=== PATIENT | female | born 1930 | race Asian ===

== ENCOUNTER 2019-06-06 00:13 | Inpatient (IN) | payer MEDICARE, OTHER ==
[~2019-06-06] VITALS: Ht 160 cm; Wt 55.8 kg
[2019-06-06 01:00] VITALS: BP 127/67
[2019-06-06] MEDS ORDERED: GEMF600T5 PO (01:19)
[2019-06-06] MEDS ORDERED: VITA1TAB37 PO (01:19)
[2019-06-06] MEDS ORDERED: AMLO10TA7 PO (01:19)
[2019-06-06] MEDS ORDERED: VIT1CAPS44 PO (01:19)
[2019-06-06] MEDS ORDERED: TRIA80CR12 TP (01:19)
[2019-06-06] MEDS ORDERED: DIPH25CA83 PO (01:19)
[2019-06-06] MEDS ORDERED: LOSA50TA39 PO (01:19)
--- NOTE | 2019-06-06 01:30 | NUR ---
ADMISSION NOTES: PT DIRECT ADMIT FROM [facility], CAME TO THE UNIT AT 0030 VIA STRETCHER ACCOMPANIED BY EMT/AMBULANCE. PT TRANSFERRED TO ROOM, BED 313-1. PT IS A/O X3 ON RA RESPIRATIONS EVEN AND UNLABORED. DENIES ANY PAIN. BUT STILL C/O ITCHING. PT NOTED TO HAVE GENERALIZED RASHES CLAIMED IT ALL STARTED WHEN SHE BEGAN TAKING ALLOPURINOL. MET WITH PT'S SON AT BED SIDE. PT HAS LEFT FA IVC ACCESS PATENT AND FLUSHING WELL, ON HL. PT USES [facility] UPON AMBULATION. LIVES WITH FAMILY AT HOME. ORIENTED TO UNIT POLICY AND HOURLY ROUNDING, USE OF CALL LIGHT SYSTEM. INVENTORY OF BELONGINGS COMPLETED BY MEHREEN POSADAS. PT'S SON DECIDED TO BRING HOME PT'S PURSE AND WALLET, INCLUDING HOME MEDICATIONS. ALL ADMISSION QUESTIONS ANSWERED BY PATIENT AND HER SON. SKIN ASSESSMENT PERFORMED, PLEASE SEE SKIN ASSESSMENT LOG FOR DETAILS. PT CLAIMED HE'S BEEN EATING AT HOME PRIOR TO COMING TO [place], ONLY C/O THROAT PAIN. VS TAKEN AND RECORDED. SAFETY PRECAUTIONS FOR FALL INITIATED, CALL LIGHT IN REACH, WILL CONTINUE MONITORING PT.
--- NOTE | 2019-06-06 01:35 | NUR ---
RN NOTES: ACCORDING TO PT, LAST TAKEN BENADRYL IS 0100AM
--- NOTE | 2019-06-06 01:56 | NUR ---
RN NOTES: NOTIFIED DR BARRERA REGARDING ADMITTING ORDERS. AWAITING FOR RESPONSE.
--- NOTE | 2019-06-06 02:42 | NUR ---
RN NOTES: RECEIVED T/O FROM , TO GIVE BENADRYL 50 MG IVP Q6HRS PRN FOR ITCHING, BENADRYL ITCH STOPPING CREAM Q8HRS PRN FOR ITCHING. ORDERS READ BACK VERIFIED AND CARRIED OUT. PER MD, HE WILL PUT THE REST OF THE ORDERS LATER ON.
[2019-06-06 02:51] VITALS: BP 127/67
[2019-06-06] MEDS ORDERED: diphenhydrAMINE HCL/ZINC ACET CREAM 28.3 GM TUBE TP PRN (03:00)
[2019-06-06] MEDS ORDERED: diphenhydrAMINE HCL 50 MG/ML VIAL IV PRN (03:00)
--- NOTE | 2019-06-06 04:00 | NUR ---
RN NOTES: SEEN PT SLEEPING, APPEARS CALM AND COMFORTABLE.
--- NOTE | 2019-06-06 06:21 | NUR ---
RN NOTES: FOLLOWED UP WITH HOSPITALIST [facility] REGARDING ADMITTING ORDERS, AWAITING FOR RESPONSE.
--- NOTE | 2019-06-06 06:55 | NUR ---
RN NOTES: PER DR'S ORDER, TO PUT ON TELEMETRY. TELE MONITORING PLACED
[2019-06-06] MEDS ORDERED: Z GUARD REMEDY 2 OZ OINT TP PRN (07:00)
[2019-06-06] MEDS ORDERED: TRIAMCINOLONE ACETONIDE 0.1% CR 15 GM TUBE TP PRN (07:00)
[2019-06-06] MEDS ORDERED: ONDANSETRON HCL/PF 4 MG/2 ML VIAL IVP PRN (07:00)
[2019-06-06] MEDS ORDERED: ACETAMINOPHEN 325 MG TABLET PO PRN (07:00)
--- NOTE | 2019-06-06 07:09 | NUR ---
END OF SHIFT SUMMARY: PT REMAINS A/O X4, ON RA, RESPIRATIONS EVEN AND UNLABORED. PLACED ON TELE MONITORING ON SINUS RHYTHM HR 87. IV ACCESS REMAINS PATENT AND FLUSHING WELL, ON HL, NO S/S OF IV INFILTRATION NOTED. VS REMAINS STABLE, NEEDS ATTENDED. SAFETY PRECAUTIONS FOR FALL REMAINS ENGAGED, CALL LIGHT IN REACH, WILL ENDORSE TO DAY RN FOR CONTINUITY OF CARE.
--- NOTE | 2019-06-06 07:15 | NUR ---
PRODUCT LISTER OPENING NOTES RECEIVED PT IN BED, AWAKE, A/O X4. PT TOLERATING RA WITH NO ACUTE RESPIRATORY DISTRESS NOTED. PT DENIES ANY PAIN OR DISCOMFORT. PT DENIES ANY CONCERNS OR QUESTIONS AT THIS TIME. PT ON TELEMONITORING WITH SR HR 90. PIV TO LFA G20, FLUSHED WITH NS, INTACT AND OPERATIONAL. PT KEPT COMFORTABLE IN BED. CALL LIGHT KEPT WITHIN REACH. WILL CONTINUE PLAN OF CARE.
[2019-06-06 08:00] VITALS: BP 113/62
[2019-06-06] MEDS: FAMOTIDINE/PF INJ 20 MG/2 ML VIAL IV SCH ×2 (08:07→20:13)
[2019-06-06 08:22] LABS: BASOPHILS # (AUTO) 0.1 /CMM (0.0-0.2); BASOPHILS % (AUTO) 0.9 % (0.0-2.0); HEMATOCRIT 39 % (33-45); HEMOGLOBIN 12.5 g/dL (11.5-14.8); LYMPHOCYTES % (AUTO) 25.6 % (20.0-44.0); MEAN CORPUSCULAR HGB CONC 32 g/dl (31.0-36.0); MEAN CORPUSCULAR VOLUME 91 fL (82-100); MONOCYTES # (AUTO) 0.9 /CMM (0.1-1.30); MONOCYTES % (AUTO) 7.6 % (2.0-12.0); NEUTROPHILS # (AUTO) 6.9 /CMM (1.8-8.9); NEUTROPHILS % (AUTO) 58.9 % (43.0-81.0); PLATELET COUNT (AUTO) 351 /CMM (150-450); RED BLOOD CELL COUNT(AUTO) 4.27 MIL/uL (4.0-5.2); WHITE BLOOD COUNT (AUTO) 11.7 K/uL (4.3-11.0)
[2019-06-06 08:41] LABS: CALCIUM, SERUM 8.1 mg/dL (8.5-10.1); CARBON DIOXIDE 21 mmol/L (21-32); CHLORIDE 110 mmol/L (98-107); CREATININE 1.2 mg/dL (0.6-1.3); GLUCOSE 92 mg/dL (74-106); POTASSIUM 3.8 mmol/L (3.5-5.1); SODIUM SERUM 141 mmol/L (136-145); UREA NITROGEN, BLOOD 15 mg/dL (7-18)
[2019-06-06 08:46] LABS: CHOLESTEROL 95 mg/dL (<200); HDL CHOLESTEROL 27 mg/dL (40-60); LDL 40 mg/dL (0-99); THYROID STIMULATING HORMONE 0.408 uIU/mL (0.358-3.74); TRIGLYCERIDES 115 mg/dL (30-150); URIC ACID 4.3 mg/dL (2.6-7.2)
[2019-06-06 08:53] LABS: C-REACTIVE PROTEIN 2.4 mg/dL (0.0-0.9)
[2019-06-06 09:06] LABS: ALANINE AMINOTRANSFERASE 116 U/L (12-78); ALBUMIN 2.3 g/dL (3.4-5.0); ALKALINE PHOSPHATASE 71 U/L (46-116); ASPARTATE AMINOTRANSFERASE 122 U/L (15-37); B-TYPE NATRIURETIC PEPTIDE 258 PG/ML (0-125); BILIRUBIN,TOTAL 0.2 mg/dL (0.2-1.0); MAGNESIUM 1.8 mg/dL (1.8-2.4); PHOSPHORUS 2.3 mg/dL (2.5-4.9); TOTAL PROTEIN, SERUM 5.7 g/dL (6.4-8.2)
--- NOTE | 2019-06-06 09:58 | NUR ---
RN NOTES CALLED PHARMACY AND SPOKE TO BETHANY REGARDING LOKESH MEDICATION. MEDICINE NOT PRESENT ON THE UNIT UP TO THIS MOMENT. AWAITING FOR DELIVERY. PT MADE AWARE WELL.
[2019-06-06] MEDS: FEXOFENADINE HCL (60 MG) 60 MG TABLET PO SCH ×2 (10:53→20:14)
[2019-06-06] MEDS ORDERED: Sodium Phosphate 15 MMOL in IV D5W 250 ML IV ONE (12:00)
[2019-06-06] MEDS ORDERED: methylPREDNISolone SOD SUCC 125 MG/2ML VIAL IV ONE (12:30)
--- NOTE | 2019-06-06 12:45 | NUR ---
MS RN NOTES PT WAS PLACED ON NPO. US ABD ONGOING.
[2019-06-06 16:00] VITALS: BP_SYST 101; BP_SYST 99; BP_DIAS 54; BP_DIAS 58
--- NOTE | 2019-06-06 18:34 | NUR ---
MS RN CLOSING NOTES PT REMAINS IN BED, AWAKE, A/O X4. PT TOLERATING RA WITH NO ACUTE RESPIRATORY DISTRESS NOTED. PT DENIES ANY PAIN OR DISCOMFORT. PIV TO RFA G20, FLUSHED WITH NS, INTACT AND OPERATIONAL. ALL NEEDS AND CARE ATTENDED. PT KEPT COMFORTABLE IN BED. CALL LIGHT KEPT WITHIN REACH. WILL ENDORSE TO INCOMING NIGHT NURSE FOR LA.
--- NOTE | 2019-06-06 19:10 | NUR ---
RN medsurg opening notes Received Pt from morning nurse. Pt is sitting in the bed eating dinner. Pt is alert and orientedX4. Respiration is normal. No SOB. No S/S of distress noted. IV sites at RFA # 20 is clean, intact, patent and SL. Safety precautions is maintained. Bed at low position, brakes locked, side rails up X3 and call light is within reach. Will continue to monitor.
[2019-06-06 20:00] VITALS: BP 111/65
[2019-06-06 20:55] VITALS: BP 111/65
--- NOTE | 2019-06-06 23:15 | NUR ---
BRENDA medsur notes Pt refused weekly skin assessment and pictures. Pt stated " They took it already." Made aware risks and benefits. Pt keep refusing. Will continue to monitor.
--- NOTE | 2019-06-07 06:52 | NUR ---
RN medsurg closing notes Pt is resting in bed comfortably. Pt is alert and orientedX4. Respiration is normal in room air. No SOB. No S/S of distress noted. IV sites at RFA # 20 is clean, intact, patent and SL. VS is stable. Afebrile. Routine meds were given as ordered. Kept Pt clean, dry and comfortable. Safety precautions is maintained. Bed at low position, brakes locked, side rails upX3 and call light is within reach. Will endorse to morning nurse for LA.
--- NOTE | 2019-06-07 07:48 | NUR ---
MS RN NOTES PATIENT RECEIVED IN BED RESTING, LAYING COMFORTABLY. ALERT AND ORIENTED X 4, SPEAKS MAINLY TAGALOG. PATIENT ON ROOM AIR, NO SIGNS OF RESPIRATORY DISTRESS. PATIENT SKIN IS DRY WITH GENERALIZED RASH. PATIENT ON CARDIAC DIET. IV ACCESS INTACT AND PATENT. PATIENT CANE BY BEDSIDE, ENDORSED SAFETY PRECAUTION WITH BED IN THE LOWEST POSITION, BED LOCKED, BED ALARM ON, BILATERAL SIDE RAILS UP, AND CALL LIGHT IN EASY REACH. WILL CONTINUE TO MONITOR PATIENT.
[2019-06-07 08:00] VITALS: BP 108/62
[2019-06-07 08:17] LABS: BASOPHILS # (AUTO) 0.1 /CMM (0.0-0.2); BASOPHILS % (AUTO) 0.6 % (0.0-2.0); EOSINOPHILS % (AUTO) 1.3 % (0.0-6.0); HEMATOCRIT 37 % (33-45); HEMOGLOBIN 11.9 g/dL (11.5-14.8); LYMPHOCYTES # (AUTO) 5.6 /CMM (0.8-4.8); MEAN CORPUSCULAR HGB CONC 33 g/dl (31.0-36.0); MEAN CORPUSCULAR VOLUME 89 fL (82-100); MONOCYTES # (AUTO) 0.9 /CMM (0.1-1.30); MONOCYTES % (AUTO) 4.4 % (2.0-12.0); NEUTROPHILS # (AUTO) 13.2 /CMM (1.8-8.9); NEUTROPHILS % (AUTO) 65.7 % (43.0-81.0); PLATELET COUNT (AUTO) 323 /CMM (150-450); RED BLOOD CELL COUNT(AUTO) 4.11 MIL/uL (4.0-5.2); WHITE BLOOD COUNT (AUTO) 20.1 K/uL (4.3-11.0)
[2019-06-07 08:32] LABS: ALBUMIN 2.3 g/dL (3.4-5.0); BILIRUBIN,DIRECT 0.1 mg/dL (0.0-0.2); BILIRUBIN,TOTAL 0.2 mg/dL (0.2-1.0); CALCIUM, SERUM 8.2 mg/dL (8.5-10.1); CREATININE 1.1 mg/dL (0.6-1.3); PHOSPHORUS 3.2 mg/dL (2.5-4.9); POTASSIUM 3.6 mmol/L (3.5-5.1); TOTAL PROTEIN, SERUM 5.8 g/dL (6.4-8.2)
[2019-06-07] MEDS: FAMOTIDINE/PF INJ 20 MG/2 ML VIAL IV SCH (08:59)
[2019-06-07] MEDS: methylPREDNISolone SOD SUCC 40 MG/ML VIAL IV SCH ×3 (08:59→16:52)
[2019-06-07] MEDS: FEXOFENADINE HCL (60 MG) 60 MG TABLET PO SCH (08:59)
--- NOTE | 2019-06-07 10:22 | NUR ---
WOUND CARE CONSULT: PT PRESENTS INDEPENDENT WITH BED MOBILITY AND CONTINENT WITH RED BLOTCHY AREAS OVER ENTIRE BODY, PRESENT ON ADMISSION. DEFER TO MD. RN TO DISCUSS WITH MD. PT ON STEROIDS. WILL SEE PRN. CURRENT DORIE SCORE IS 17.
[2019-06-07] MEDS ORDERED: METH4TAB3 PO (12:14)
--- NOTE | 2019-06-07 15:21 | NUR ---
MS RN NOTES PATIENT SEEN AND EXAMINED BY CARMELO RAMIRES NP WITH ORDER FOR DISCHARGE TO HOME. PATIENT MADE AWARE OFFERED TO DO WOUND PHOTO DOCUMENTATION BUT PATIENT REFUSED. EXPLAINED TO PATIENT THE IMPORTANCE OF INTEGUMENTARY PHOTOS OF PATIENT'S GENERALIZED RASH. PATIENT STRONGLY REFUSED TO TAKE PHOTOS AGAIN, EDUCATED THE PATIENT THE BENEFITS ANDS NEEDS FOR THE PHOTOS. PATIENT DENIED AND STATED TO USE THE PHOTOS THAT WERE TAKEN PRIOR. WILL CONTINUE TO MONITOR PATIENT.
[2019-06-07 16:00] VITALS: BP 125/67
--- NOTE | 2019-06-07 16:09 | NUR ---
MS RN NOTES PATIENT HAS NEW MEDICATION, PRESCRIPTION ORDER FOR DISCHARGE. CALLED PATIENT PREFERRED PHARMACY, AND SPOKE TO THE PHARMACIST TO VERIFIED AND CONFIRMED THAT THEY HAVE RECEIVED THE ORDER AND WILL BE READY FOR PICKUP. WILL INFORM PATIENT AND NOTIFY THE VERIFICATION OF NEW MEDICATION ORDER.
--- NOTE | 2019-06-07 16:22 | NUR ---
MS RN NOTES CALLED PATIENTS GRAND-DAUGHTER, OMAYRA, INFORMED PATIENT IS CLEARED FOR DISCHARGE. VERBALIZED UNDERSTANDING, STATED SHE WILL COME AND PICK PATIENT UP.
--- NOTE | 2019-06-07 17:45 | NUR ---
MS RN NOTES PATIENT WAS DISCHARGED AT BEDSIDE ACCOMPANIED BY GRAND-DAUGHTER. REMOVED IV ACCESS SITE AND REMOVED ID BAND. DISCHARGE TEACHING AND EDUCATION PROVIDED, PATIENT VERBALIZED UNDERSTANDING. 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 VERBALIZED PATIENT WILL FOLLOW UP WITH ENT AND MANAGER NEW PRODUCT. ALL BELONGINGS COMPLETE ON DISCHARGE. NO ACUTE DISTRESS OR NO COMPLAINS OF PAIN OR DISCOMFORT. NO NEW SKIN BREAKDOWNS.PATIENT LEFT UNIT IN A WHEELCHAIR, ACCOMPANIED BY NURSING STAFF TO PARKING LOT. PATIENT LEFT VIA PRIVATE CAR WITH GRAND-DAUGHTER. MD AWARE OF DISCHARGE.
== END 2019-06-07 17:45 | disposition home or self-care (01) | DRG 606 ==
LOC: MED 00:13 → TELE 06:55 → MED 08:10
PROVIDERS: ADMIT Nurse Practitioner Acute Care; ATTEND Nurse Practitioner Acute Care
DX: L27.0 Generalized skin eruption due to drugs and medicaments taken internally (principal); N17.0 Acute kidney failure with tubular necrosis; J98.11 Atelectasis; M10.9 Gout, unspecified; M81.0 Age-related osteoporosis without current pathological fracture; I10 Essential (primary) hypertension; E83.39 Other disorders of phosphorus metabolism; R74.0 Nonspecific elevation of levels of transaminase and lactic acid dehydrogenase [LDH]; Z88.9 Allergy status to unspecified drugs, medicaments and biological substances; T50.4X5A Adverse effect of drugs affecting uric acid metabolism, initial encounter; Y92.89 Other specified places as the place of occurrence of the external cause; D72.1 Eosinophilia; E78.5 Hyperlipidemia, unspecified
CPT/HCPCS: 36415; 71045-TC; 76700-TC; 80048-TC; 80053-TC; 80061-TC; 80076-TC; 83735-TC; 83880; 84100-TC; 84443-TC; 84484-TC; 84550-TC; 85025-TC; 85652-TC; 86140-TC; 87081-TC; 97116-TC; 97530-TC; A9563; G0378; J1200; J2920; J2930; J3490; J7050; J7060